=== PATIENT | male | born 1935 | race Caucasian/White ===

== ENCOUNTER 2023-09-25 11:57 | Emergency (ER) | payer MEDICARE, BC ==
[~2023-09-25] VITALS: Ht 160 cm; Wt 73.9 kg
[2023-09-25] MEDS ORDERED: TDAP [DIPH/PERTUSSIS/TET] 0.5 ML VIAL IM ONE (12:42)
[2023-09-25] MEDS: TDAP [DIPH/PERTUSSIS/TET] 0.5 ML VIAL IM ONE (12:45)
[2023-09-25 12:55] VITALS: BP 140/69; TEMP 98.7; O2SAT 100
== END 2023-09-25 12:55 | disposition home or self-care (01) ==
LOC: ER 11:57
DX: S61.211A Laceration without foreign body of left index finger without damage to nail, initial encounter (principal); I10 Essential (primary) hypertension; W26.8XXA Contact with other sharp object(s), not elsewhere classified, initial encounter; Y93.89 Activity, other specified; Y92.89 Other specified places as the place of occurrence of the external cause; Y99.8 Other external cause status
CPT/HCPCS: 12001; 90471; 90715; 99283; A6403